=== PATIENT | female | born 1980 | race Caucasian/White ===

== ENCOUNTER 2024-12-21 14:20 | Emergency (ER) | payer OTHER, SELFPAY ==
[2024-12-21] VITALS (10 sets, daily range): BP systolic 116–157; BP diastolic 74–101; PULSE 107–136; RESP 20–32; TEMP 36.2; O2SAT 86–98
--- NOTE | ~2024-12-21 | XR_ITS ---
CHEST RADIOGRAPH CLINICAL HISTORY: shortness of breath . COMPARISON: None available TECHNIQUE: Single portable view of the chest. FINDINGS The cardiomediastinal silhouette is unremarkable. The lungs are clear. Visualized osseous structures and soft tissues are unremarkable. IMPRESSION: No focal infiltrate or effusion. Reviewed, dictated and finalized at location A.
--- NOTE | 2024-12-21 14:30 | ECG_ITS ---
Test Date: 2024-12-21 14:53:40 Measurements Intervals [place] Rate: 109 P: 69 [place]: 148 QRS: 69 QRSD: 102 T: 66 QT: 338 QTc: 456 Interpretive Statements SINUS TACHYCARDIA WITH OCCASIONAL ECTOPIC PREMATURE COMPLEXES NONSPECIFIC ST ABNORMALITY ABNORMAL ECG No previous ECG available for comparison Electronically Signed On 12-21-2024 15:45:31 CDT by Darryl Monroy M.D.
[2024-12-21] MEDS: IPRATROPIUM 0.5 MG/ALBUTEROL SULFATE 2.5 MG AMPUL.NEB 3 ML INHALATION ×2 (14:41→15:31)
[2024-12-21] MEDS: methylPREDNISolone SOD SUCC 125 MG VIAL IV PUSH (14:42)
[2024-12-21 15:31] LABS: Basophils Absolute Auto 0.04 K/mm3 (0.00-0.10); Basophils Percent Auto 0.4 % (0.0-1.0); Eosinophils Absolute Auto 0.15 K/mm3 (0.02-0.50); Eosinophils Percent Auto 1.6 % (1.0-6.0); Hematocrit 38.9 % (35.0-49.0); Hemoglobin 12.7 g/dL (12.0-15.0); Immature Granulocyte Absolute 0.02 K/mm3 (0.00-0.00); Immature Granulocyte Percent A 0.2 % (0.0-0.0); Lymphocytes Absolute Auto 2.18 K/mm3 (1.10-4.50); Mean Corpuscular HGB Conc 32.6 g/dL (32-36); Mean Corpuscular Hemoglobin 30.6 pg (27.0-31.0); Mean Corpuscular Volume 93.7 fL (78.0-102.0); Mean Platelet Volume 9.7 fl (9.2-11.8); Monocytes Absolute Auto 0.48 K/mm3 (0.10-0.90); Monocytes Percent Auto 5.3 % (2.0-11.0); Neutrophils Absolute Auto 6.23 K/mm3 (1.70-7.20); Neutrophils Percent Auto 68.5 % (50.0-70.0); Platelet Count Result 278 K/mm3 (150-420); Red Blood Count 4.15 M/mm3 (4.20-5.40); White Blood Count 9.1 K/mm3 (4.8-10.8)
[2024-12-21 15:47] LABS: D Dimer 0.19 mg/L (0.19-0.50)
[2024-12-21 16:03] LABS: Alanine Aminotransferase 19 U/L (14-59); Albumin Level 3.7 g/dL (3.4-5.0); Alkaline Phosphatase 96 U/L (46-116); Anion Gap 13 mmol/L (4-12); Aspartate Amino Transferase < 10 U/L (15-37); Bilirubin,Total 0.3 mg/dL (0.00-1.00); Blood Urea Nitrogen 16 mg/dL (7-18); Carbon Dioxide 25 mmol/L (21-32); Chloride 104 mmol/L (98-108); Estimated CRCL calculation 76 ml/min; Estimated Glomerular Filt Rate 58; Glucose 124 mg/dL (70-99); Magnesium 2.1 mg/dL (1.8-2.4); NT Pro B Type Natriuretic Pept 70 pg/mL (0-125); Osmolality Calculated 296 mOsm/kg (285-295); Potassium 3.2 mmol/L (3.5-5.1); Sodium 142 mmol/L (136-145); Total Protein 7.5 g/dL (6.4-8.2)
[2024-12-21 16:04] LABS: Troponin I < 4.0 ng/L (0.00-60.4)
--- NOTE | 2024-12-21 16:26 | ED_ITS ---
HPI - SOB/Dyspnea General Chief Complaint: Shortness of Breath/Dyspnea Stated Complaint: SOB Time Seen by Provider: 12/21/24 14:25 Source: patient Mode of arrival: ambulatory Limitations: no limitations History of Present Illness HPI Narrative: Patient is a 44-year-old female with significant past medical history that presents today for shortness of breast. Patient has a history of asthma and is currently an asthma exacerbation. She says she has been wheezing very bad since last night and has been getting worse. She has been having over breathing. She says she has not had And asthma exacerbation has some time now. she has not been using her daily inhaler because she has not really needed it since she quit smoking and has not needed her rescue inhaler at all either. She did use her rescue inhaler today since test patient started however and it was not enough. MD elicited complaint: shortness of breath Pertinent past history: asthma Onset (ago): day(s) Timing: constant Severity: moderate Exacerbating factors: lying flat and coughing Relieving factors: bronchodilators and upright position Known history of: asthma Associated symptoms: denies other symptoms Treatment prior to arrival: bronchodilator Related Data Home oxygen amount: none Home Medications ?Medication ?Instructions ?Recorded ?Confirmed ?Last Taken ?Type gabapentin 100 mg capsule 100 mg PO BID 12/21/24 Unknown History Allergies Allergy/AdvReac Type Severity Reaction Status Date / Time No Known Allergies Allergy Verified 12/21/24 14:38 Review of Systems 2 Review of Systems: All systems reviewed & are unremarkable except as noted in HPI and below Constitutional: Constitutional: Reports as per HPI Eyes: Eyes: Reports no additional eye complaints ENT: Reports system reviewed and no additional complaints, except as documented Cardiovascular: Cardiovascular: Reports no additional cardiovascular complaints Respiratory: Respiratory: Reports as per HPI, Reports dyspnea and Reports wheezing Gastrointestinal: Gastrointestinal: Reports no additional gastrointestinal complaints Genitourinary: Genitourinary: Reports no additional female genitourinary complaints Musculoskeletal: Musculoskeletal: Reports no additional musculoskeletal complaints Integumentary/Breasts: Skin/Breast: Reports system reviewed and no additional complaints, except as docu Neurologic: Reports system reviewed and no additional complaints, except as documented Psychiatric: Psychiatric: Reports no additional psychiatric complaints Endocrine: Endocrine: Reports no additional endocrine complaints Hematologic/Lymphatic: Hematologic/Lymphatic: Reports no additional hematologic/lymphatic complaints Allergic/Immunologic: Allergic/Immunologic: Reports no additional allergic/immunologic complaints Exam 2 Const: General: healthy appearing Nutritional Appearance: well nourished Orientation/consciousness: patient oriented x3 HENMT: Head: normal to inspection Ears: external ears normal F tanisha/Nose/Sinus: Normal external nose present Face and sinus: normal facial exam Mouth: Yes Normal oral and palatal mucosa present Eyes: Conjunctivae: conjunctivae normal Pupils: Equal, round and reactive pupils present EOM: EOMs intact bilaterally Neck: Neck: normal visual inspection Chest: Chest palpation & inspection: normal inspection of the chest Resp: Effort & Inspection: normal respiratory effort Auscultation: clear to auscultation bilaterally Cardio: Rate: regular rate Rhythm: regular rhythm GI: GI Palp: Yes Soft to palpation Back/Spine/Pelvis: Back: no CVA tenderness Skin: General skin exam: normal color Rashes: no rashes Wounds: no wounds Neuro: General: patient oriented x3 Cranial nerves: Yes Nystagmus not present Speech: normal speech Extrem: General: normal to inspection Psych: Mental Status: mental status grossly normal Affect: normal affect Attitude: cooperative Course Vital Signs Vital signs: Vital Signs Temperature 97.2 F L 12/21/24 14:27 Pulse Rate 136 H 12/21/24 14:27 Respiratory Rate 32 H 12/21/24 14:27 Blood Pressure 157/101 H 12/21/24 14:27 Pulse Oximetry 86 L 12/21/24 14:27 Oxygen Delivery Room Air 12/21/24 14:27 Temperature 97.2 F L 12/21/24 14:27 Pulse Rate 110 H 12/21/24 15:45 Respiratory Rate 20 12/21/24 15:45 Blood Pressure 137/81 12/21/24 15:01 Pulse Oximetry 95 12/21/24 15:45 Oxygen Delivery Room Air 12/21/24 15:01 Oxygen Flow Rate 2 12/21/24 14:44 MDM - SOB/Dyspnea MDM Narrative Medical decision making narrative: Patient is having an asthma exacerbation and his wheezing all lung crowe and we have has shortness of breath. Her give her 2 DuoNeb treatments and also give her Solu-Medrol as well. Will do a chest x-ray and full lab workup as well. Patient improved dramatically after 2 DuoNeb treatments and Solu-Medrol. Chest x-ray was WNL labs WNL except for low potassium and replace this with potassium supplementation. Differential Diagnosis Differential diagnosis: Likely asthma with exacerbation Medical Records Attestation: I reviewed the patient's medical records. Lab Data Attestation: I reviewed the patient's lab results. 12/21/24 15:23 12/21/24 15:23 Labs: Lab Results 12/21/24 Range/Units 15:23 WBC 9.1 (4.8-10.8) K/mm3 RBC 4.15 L (4.20-5.40) M/mm3 Hgb 12.7 (12.0-15.0) g/dL Hct 38.9 (35.0-49.0) % MCV 93.7 (78.0-102.0) fL MCH 30.6 (27.0-31.0) pg MCHC 32.6 (32-36) g/dL RDW 13.0 (11.6-14.4) % Plt Count 278 (150-420) K/mm3 MPV 9.7 (9.2-11.8) fl Immature Gran % (Auto) 0.2 H (0.0-0.0) % Neut % (Auto) 68.5 (50.0-70.0) % Lymph % (Auto) 24.0 (18.0-42.0) % Humphreys % (Auto) 5.3 (2.0-11.0) % Eos % (Auto) 1.6 (1.0-6.0) % Baso % (Auto) 0.4 (0.0-1.0) % Lymph # (Auto) 2.18 (1.10-4.50) K/mm3 Humphreys # (Auto) 0.48 (0.10-0.90) K/mm3 Eos # (Auto) 0.15 (0.02-0.50) K/mm3 Baso # (Auto) 0.04 (0.00-0.10) K/mm3 Abs Immat Gran (auto) 0.02 H (0.00-0.00) K/mm3 Absolute Neuts (auto) 6.23 (1.70-7.20) K/mm3 Absolute Nucleated RBC 0.00 (0.00-0.00) K/mm3 Nucleated RBC % 0.0 (0-0.0) % D-Dimer 0.19 (0.19-0.50) mg/L Sodium 142 (136-145) mmol/L Potassium 3.2 L (3.5-5.1) mmol/L Chloride 104 (98-108) mmol/L Carbon Dioxide 25 (21-32) mmol/L Anion Gap 13 H (4-12) mmol/L BUN 16 (7-18) mg/dL Creatinine 1.02 (0.55-1.02) mg/dL Estim Creat Clear Calc 76 ml/min Estimated GFR 58 L (59 - ) Glucose 124 H (70-99) mg/dL Calculated Osmolality 296 H (285-295) mOsm/kg Calcium 9.0 (8.5-10.1) mg/dL Magnesium 2.1 (1.8-2.4) mg/dL Total Bilirubin 0.3 (0.00-1.00) mg/dL AST < 10 L (15-37) U/L ALT 19 (14-59) U/L Alkaline Phosphatase 96 (46-116) U/L Troponin I < 4.0 (0.00-60.4) ng/L NT-Pro-B Natriuret Pep 70 (0-125) pg/mL Total Protein 7.5 (6.4-8.2) g/dL Albumin 3.7 (3.4-5.0) g/dL Discharge Plan Discharge Clinical Impression: Asthma exacerbation Patient Disposition: Home, Self-Care Condition: Stable Instructions: Asthma (ED) Additional Instructions: take 2 puffs albuterol rescue inhaler every 4 hours for the next 24 hours. Then just was just as needed after that. Will start prednisone tomorrow all and take 5 day course 1 pill a day. Patient Language: [place] Prescriptions: New prednisone 50 mg tablet 50 mg PO DAILY Qty: 5 0RF No Action gabapentin 100 mg capsule 100 mg PO BID Follow-up/Referrals: Jory,MD Lionel [Primary Care Provider] - Time of Disposition: 16:33
[2024-12-21] MEDS: POTASSIUM CHLORIDE 20 MEQ ER TABLET 40 MEQ PO (16:28)
--- NOTE | 2024-12-21 17:00 | PC.NURSE ---
On 12/21/24, the student, [el martinez], provided care and completed [facility] documentation on this patient. I have reviewed the student's documentation and agree with the findings.
== END 2024-12-21 16:35 | disposition home or self-care (01) ==
PROVIDERS: Emergency Provider Family Medicine; PCP Family Medicine
DX: J45.901 Unspecified asthma with (acute) exacerbation (principal); Z79.899 Other long term (current) drug therapy
CPT/HCPCS: 36415; 71045; 80053; 83735; 83880; 84484; 85025; 85380; 93005; 96374; 99284; A9270; J2919